=== PATIENT | male | born 1945 | race Caucasian/White ===

== ENCOUNTER → 2023-08-23 10:03 | Outpatient (REF) | payer MEDICARE, OTHER, SELFPAY | LOC: RAD 10:03 | PROVIDERS: ATTENDING PHYSICIAN Otolaryngology; FAMILY PHYSICIAN Student in an Organized Health Care Education/Training Program | DX: R13.14 Dysphagia, pharyngoesophageal phase (principal) | CPT/HCPCS: 74221 ==

== ENCOUNTER → 2023-09-23 09:34 | Outpatient (REF) | payer MEDICARE, OTHER, SELFPAY | LOC: RAD 09:34 | PROVIDERS: ATTENDING PHYSICIAN Otolaryngology; FAMILY PHYSICIAN Student in an Organized Health Care Education/Training Program | DX: R13.10 Dysphagia, unspecified (principal) | CPT/HCPCS: 74230; 92611 ==

== ENCOUNTER → 2023-11-06 09:42 | Outpatient (REF) | payer MEDICARE, OTHER, SELFPAY ==
[2023-11-06 11:19] LABS: ALT (SGPT) 81 U/L (0-50); AST (SGOT) 59 U/L (17-59); Albumin 4.6 g/dl (3.5-5.0); Alkaline Phosphatase 92 U/L (38-126); Blood Urea Nitrogen 15 mg/dl (9-20); Calcium 9.7 mg/dl (8.4-10.2); Carbon Dioxide 27 mmol/L (22-30); Chloride 100 mmol/L (98-107); Glucose 101 mg/dl (70-99); HDL Cholesterol 79 mg/dl; LDL Cholesterol, Calculated 61 mg/dl; Potassium 4.8 mmol/L (3.5-5.1); Sodium 137 mmol/L (135-145); Total Cholesterol 156 mg/dl (50-199); Total Protein 7.2 g/dl (6.3-8.2); Triglyceride 83 mg/dl (10-149); Very Low Density Lipoprotein 16 mg/dl (0-30); eGFR > 60.00
== END ==
LOC: REG 09:42
PROVIDERS: ATTENDING PHYSICIAN Student in an Organized Health Care Education/Training Program
DX: E78.2 Mixed hyperlipidemia (principal); Z00.00 Encounter for general adult medical examination without abnormal findings; Z12.5 Encounter for screening for malignant neoplasm of prostate
CPT/HCPCS: 36415; 80053; 80061; G0103

== ENCOUNTER → 2024-04-02 06:32 | Day surgery (SDC) | payer MEDICARE, OTHER, SELFPAY | LOC: GI 06:32 | PROVIDERS: ATTENDING PHYSICIAN Internal Medicine Gastroenterology | DX: Q39.4 Esophageal web (principal); K22.2 Esophageal obstruction; K31.89 Other diseases of stomach and duodenum; R13.10 Dysphagia, unspecified; K21.00 Gastro-esophageal reflux disease with esophagitis, without bleeding | CPT/HCPCS: 43239; 88305; 88342 ==

== ENCOUNTER → 2024-06-22 08:45 | Day surgery (SDC) | payer MEDICARE, OTHER, SELFPAY ==
[2024-06-22 11:39] LABS: Hematocrit 46.5 % (39.0-52.0); Hemoglobin 15.7 g/dL (13.0-18.0); Mean Corp Hgb Conc. 33.8 g/dL (33.0-37.0); Mean Corpuscular Hgb 34.6 pg (27.0-31.0); Mean Corpuscular Volume 102.4 fL (80.0-94.0); Mean Platelet Volume 9.2 fL (7.4-10.4); Platelet Count 207 10^3/uL (130-400); Red Blood Cell Count 4.54 10^6/uL (4.70-6.10); Red Cell Dist. Width 13.5 % (11.5-14.5); White Blood Cell Count 4.8 10^3/uL (4.8-10.8)
[2024-06-22 11:47] LABS: Blood Urea Nitrogen 13 mg/dl (9-20); Carbon Dioxide 30 mmol/L (22-30); Chloride 104 mmol/L (98-107); Glucose 91 mg/dl (70-99); Potassium 4.4 mmol/L (3.5-5.1); Sodium 145 mmol/L (135-145); eGFR > 60.00
== END ==
LOC: SDSPAT 08:45
PROVIDERS: ATTENDING PHYSICIAN Otolaryngology; FAMILY PHYSICIAN Student in an Organized Health Care Education/Training Program
DX: Z01.810 Encounter for preprocedural cardiovascular examination (principal); Z01.812 Encounter for preprocedural laboratory examination
CPT/HCPCS: 93005; 36415; 80048; 85027

== ENCOUNTER 2024-07-01 06:32 | Day surgery (SDC) | payer MEDICARE, OTHER, SELFPAY ==
[2024-06-22 14:10] VITALS: BMI 30.2
[2024-07-01] VITALS (7 sets, daily range): BP systolic 110–138; BP diastolic 72–87; BMI 30.2
== END 2024-07-01 14:30 | disposition home or self-care (01) ==
LOC: SDS 06:32
PROVIDERS: ATTENDING PHYSICIAN Otolaryngology; FAMILY PHYSICIAN Student in an Organized Health Care Education/Training Program
PROC: 0D757ZZ Dilation of Esophagus, Via Natural or Artificial Opening (ICD-10-PCS; 2024-07-01)
DX: K22.2 Esophageal obstruction (principal)
CPT/HCPCS: 43450

== ENCOUNTER 2024-09-14 06:24 | Day surgery (SDC) | payer MEDICARE, OTHER, SELFPAY | END 2024-09-14 14:50 | disposition home or self-care (01) | LOC: GI 06:24 | PROVIDERS: ATTENDING PHYSICIAN Internal Medicine Gastroenterology; FAMILY PHYSICIAN Student in an Organized Health Care Education/Training Program | DX: Z12.11 Encounter for screening for malignant neoplasm of colon (principal); K57.30 Diverticulosis of large intestine without perforation or abscess without bleeding; K64.0 First degree hemorrhoids; D12.0 Benign neoplasm of cecum; D12.2 Benign neoplasm of ascending colon; D12.3 Benign neoplasm of transverse colon; K63.5 Polyp of colon; Z86.0100 Personal history of colon polyps, unspecified | CPT/HCPCS: 45385; 45380; 88305 ==

== ENCOUNTER → 2024-10-20 12:57 | Outpatient (REF) | payer MEDICARE, OTHER, SELFPAY | LOC: MRI 3T 12:57 | PROVIDERS: ATTENDING PHYSICIAN Pain Medicine Interventional Pain Medicine; FAMILY PHYSICIAN Student in an Organized Health Care Education/Training Program | DX: M54.16 Radiculopathy, lumbar region (principal) | CPT/HCPCS: 72148 ==

== ENCOUNTER → 2024-12-09 09:38 | Outpatient (REF) | payer MEDICARE, OTHER, SELFPAY ==
[2024-12-09 11:39] LABS: ALT (SGPT) 41 U/L (0-50); AST (SGOT) 29 U/L (17-59); Albumin 4.5 g/dl (3.5-5.0); Alkaline Phosphatase 87 U/L (38-126); Blood Urea Nitrogen 15 mg/dl (9-20); Calcium 9.7 mg/dl (8.4-10.2); Carbon Dioxide 31 mmol/L (22-30); Chloride 107 mmol/L (98-107); Glucose 104 mg/dl (70-99); HDL Cholesterol 65 mg/dl; LDL Cholesterol, Calculated 76 mg/dl; Potassium 5.5 mmol/L (3.5-5.1); Sodium 143 mmol/L (135-145); Total Bilirubin 0.8 mg/dl (0.2-1.3); Total Cholesterol 152 mg/dl (50-199); Triglyceride 57 mg/dl (10-149); Very Low Density Lipoprotein 11 mg/dl (0-30); eGFR > 60.00
[2024-12-09 12:07] LABS: PSA, Total - Screen 1.13 ng/ml (0.0-4.0); TSH Reflex To Free T4 1.29 uIU/ml (0.47-4.68)
[2024-12-09 12:10] LABS: % Basophils 0.5 % (0-2); % Eosinophils 4.3 % (0-6); % Lymphocytes 27.2 % (20.5-51.1); % Monocytes 8.8 % (1.7-9.3); % Neutrophils 59.2 % (42.2-75.2); Absolute Eosinophils 0.2 10^3/uL (0-0.7); Absolute Lymphocytes 1.1 10^3/uL (1.2-3.4); Absolute Monocytes 0.4 10^3/uL (0.1-0.6); Absolute Neutrophils 2.4 10^3/uL (1.4-6.5); Hematocrit 47.3 % (39.0-52.0); Hemoglobin 15.9 g/dL (13.0-18.0); Mean Corp Hgb Conc. 33.6 g/dL (33.0-37.0); Mean Corpuscular Hgb 33.8 pg (27.0-31.0); Mean Corpuscular Volume 100.6 fL (80.0-94.0); Mean Platelet Volume 9.1 fL (7.4-10.4); Nucleated Red Blood Cells % 0 % (-); Platelet Count 206 10^3/uL (130-400); Red Cell Dist. Width 13.2 % (11.5-14.5)
== END ==
LOC: REG 09:38
PROVIDERS: ATTENDING PHYSICIAN Student in an Organized Health Care Education/Training Program
DX: E78.2 Mixed hyperlipidemia (principal); Z00.00 Encounter for general adult medical examination without abnormal findings; D75.89 Other specified diseases of blood and blood-forming organs; Z12.5 Encounter for screening for malignant neoplasm of prostate
CPT/HCPCS: 36415; 80053; 80061; 84443; 85025; G0103

== ENCOUNTER → 2025-01-20 11:09 | Outpatient (REF) | payer MEDICARE, OTHER, SELFPAY ==
[2025-01-20 12:32] LABS: Albumin 4.9 g/dl (3.5-5.0); Blood Urea Nitrogen 11 mg/dl (9-20); Calcium 9.7 mg/dl (8.4-10.2); Carbon Dioxide 25 mmol/L (22-30); Chloride 107 mmol/L (98-107); Glucose 104 mg/dl (70-99); Potassium 4.4 mmol/L (3.5-5.1); Sodium 139 mmol/L (135-145); eGFR > 60.00
== END ==
LOC: REG 11:09
PROVIDERS: ATTENDING PHYSICIAN Student in an Organized Health Care Education/Training Program
DX: R14.0 Abdominal distension (gaseous) (principal); R19.5 Other fecal abnormalities; E87.5 Hyperkalemia
CPT/HCPCS: 36415; 80069